=== PATIENT | female | born 1975 | race Caucasian/White ===

== ENCOUNTER 2024-11-27 21:30 | Emergency (ER) | payer BC, SELFPAY ==
[2024-11-27] VITALS (13 sets, daily range): BP systolic 97–122; BP diastolic 49–75; PULSE 68–92; TEMP 36.8; O2SAT 96–99; BMI 22.6
--- NOTE | 2024-11-27 21:40 | ED_ITS ---
HPI - Allergic Reaction General Chief complaint: Allergic Reaction Stated complaint: ALLERGIC REACTION Time Seen by Provider: 11/27/24 21:36 Source: patient Mode of arrival: walk-in Limitations: no limitations History of Present Illness HPI narrative: This 49-year-old female presents for evaluation of an allergic reaction. The patient had [place] food for dinner including shrimp which she has eaten all of her life. She states that she started having some swelling of her lips and developed hives. She was going to send her to the pharmacy to get Benadryl but then she started having increased swelling of her lips and swelling in her tongue. She does not have any difficulty breathing at this time. She is not currently on any MARCO A inhibitors or any medications whatsoever. She and her had the same dinner and he does not have any allergic symptoms. Related Data Home Medications ?Medication ?Instructions ?Recorded ?Confirmed No Known Home Medications 11/27/2411/07 Allergies Allergy/AdvReac Type Severity Reaction Status Date / Time No Known Drug Allergies Allergy Verified 11/27/24 21:36 Review of Systems ROS Status of ROS 10 or more systems reviewed and unremark able except as noted in history and below PFSH PFSH Social History Little interest or pleasure in doing things: not at all Feeling down, depressed, or hopeless: not at all Exam Narrative Exam Narrative: Vital signs and Nursing Notes reviewed: Patient is afebrile with normal pulse, normal blood pressure, she is not hypoxic with pulse ox of 96% on room air General: Awake, alert, oriented, mildly anxious, notable swelling of the lips and generalized hives HEENT: Normocephalic atraumatic, notable swelling of the upper and lower lips. Mild tongue swelling, no swelling of the posterior pharynx at this time. No stridor. Neck: Supple, no stridor Chest: Lungs are clear to auscultation with good air entry, there is no wheezing rhonchi or rales appreciated no accessory muscle use, patient is speaking in complete sentences-no chest wall tenderness to palpation CVS: Regular rate and rhythm S1-S2, no murmurs rubs or gallops, pulses are brisk and equal bilaterally ABD: Soft, nondistended, nontender, no rebound guarding or rigidity, bowel sounds are normal, no pulsatile masses appreciated Extremities: Moving all extremities, no lower extremity tenderness or swelling noted, negative Homans' sign, pulses are brisk and equal bilaterally Skin: Diffuse erythema consistent with hives Neuro: No focal deficits Constitutional Vital Signs, click to edit/add: Last Vital Signs Temp 98.2 F 11/27/24 21:32 Pulse 92 H 11/27/24 21:32 Resp 18 11/27/24 21:32 BP 122/75 11/27/24 21:32 Pulse Ox 96 11/27/24 21:32 O2 Del Method Room Air 11/27/24 21:32 Course Vital Signs Vital signs: Vital Signs Temperature 98.2 F 11/27/24 21:32 Pulse Rate 92 H 11/27/24 21:32 Respiratory Rate 18 11/27/24 21:32 Blood Pressure 122/75 11/27/24 21:32 Pulse Oximetry 96 11/27/24 21:32 Oxygen Delivery Method Room Air 11/27/24 21:32 Temperature 98.2 F 11/27/24 21:32 Pulse Rate 92 H 11/27/24 21:32 Respiratory Rate 18 11/27/24 21:32 Blood Pressure 122/75 11/27/24 21:32 Pulse Oximetry 96 11/27/24 21:32 Oxygen Delivery Method Room Air 11/27/24 21:32 MDM - Allergic Reaction MDM Narrative Medical decision making narrative: This 49-year-old female who had [place] food with shrimp for dinner and developed an allergic reaction including lip swelling, tongue swelling, diffuse hives was treated immediately upon arrival with IV Solu-Medrol, epinephrine, Pepcid and Benadryl. Shortly after the epinephrine she started to feel that her tongue swelling was improving. She was continually monitored and her symptoms have improved. Her lip swelling has decreased, her tongue swelling has decreased, her hives have resolved. She is not having any nausea or vomiting, difficulty breathing or swallowing. Her lungs are clear. She will be monitored for an additional period of time in the emergency department. She will be discharged home with her with a prescription for an EpiPen to pack, 40 mg Pepcid to take for the next 7 days and Medrol Dosepak. I encouraged her to call the restaurant where she ate and get all of the ingredients that were in the food that she had earlier this evening and attempt to figure out what she may have been allergic to. Critical Care Time Critical Care Time Total Critical Care Time: 35 Attestation: Due to this patient's presentation with acute allergic reaction with angioedema she required the highest level of my preparedness to intervene urgently, I provided critical care time including documentation time medication orders and management, reevaluation, vital sign assessment. Critical care time is 35 minutes including only time during which I was involved directly in her care Discharge Plan Discharge Chief Complaint: Allergic Reaction Clinical Impression: Allergic reaction, Angioedema Prescriptions / Home Meds: No Action No Known Home Medications Print Language: Indonesian Instructions: Food Allergy (ED), Angioedema (ED), General Allergic Reaction (ED)
[2024-11-27] MEDS: FAMOTIDINE/PF 20 MG/2 ML VIAL 40 MG IV (22:00)
[2024-11-27] MEDS: EPINEPHRINE HCL PF 1 MG/ML AMPULE 0.3 MG IM (22:01)
[2024-11-27] MEDS: DIPHENHYDRAMINE HCL 50 MG/ML VIAL 25 MG IVP (22:01)
[2024-11-27] MEDS: 0.9 % SODIUM CHLORIDE 500 ML IV (22:01)
[2024-11-27] MEDS: METHYLPREDNISOLONE SOD SUCC PF 125 MG/2 ML VIAL IVP (22:01)
== END 2024-11-27 23:33 | disposition home or self-care (01) ==
PROVIDERS: Emergency Provider Emergency Medicine; PCP Physician Assistant
DX: T78.3XXA Angioneurotic edema, initial encounter (principal); T78.19XA Other adverse food reactions, not elsewhere classified, initial encounter
CPT/HCPCS: 96372; 96374; 96375; 99284; J1200; J2919; J3490